=== PATIENT | female | born 1945 | race Caucasian/White ===

== ENCOUNTER → 2022-04-02 | Outpatient (CLI) | payer MEDICARE ==
[~2022-04-02] MED LIST: Aspirin EC81 MG PO; BUSP15 PO; CITA20 PO; DIAZ5 PO; LOSHYD PO
== END | disposition home or self-care (01) ==
LOC: LAB 12:00 → LAB SHORT 12:00
DX: J31.0 Chronic rhinitis (principal); J32.9 Chronic sinusitis, unspecified
CPT/HCPCS: 87070; 87077; 87147; 87186; 87205

== ENCOUNTER → 2023-10-20 | Outpatient (CLI) | payer MEDICARE ==
[2023-10-20 17:21] LABS: Source, Urine Clean Catch
[2023-10-20 18:20] LABS: Appearance, Urine Clear (Clear); Bilirubin, Urine Neg (Neg); Blood, Urine Neg (Neg); Color, Urine Yellow (P-Yellow); Glucose Qualitative, Urine Neg (Neg); Ketones, Urine Neg (Neg); Leukocyte Esterase, Urine Neg (Neg); Nitrite, Urine Neg (Neg); Protein, Urine 2+ (Neg); Specific Gravity, Urine 1.025 (1.003-1.022); Urobilinogen, Urine NORM (Normal)
[2023-10-20 18:29] LABS: Bacteria Few /hpf; Mucus Light (0-Heavy); Red Blood Cells, Urine 0-2 /hpf (0-2); Squamous Epithelial Cells Few /hpf (Few); Transitional Epithelial Cells Rare /hpf (0-Rare); White Blood Cells, Urine 0-2 /hpf (0-5)
== END | disposition home or self-care (01) ==
LOC: LAB SHORT 17:20 → LAB 17:20
PROVIDERS: Obstetrics & Gynecology
DX: R32 Unspecified urinary incontinence (principal)
CPT/HCPCS: 81001

== ENCOUNTER → 2024-04-14 | Outpatient (CLI) | payer MEDICARE | LOC: LAB 16:13 → LAB SHORT 16:13 | DX: L08.0 Pyoderma (principal) | CPT/HCPCS: 87070; 87205 ==

== ENCOUNTER 2024-11-14 01:15 | Day surgery (SDC) | payer MEDICARE ==
[2024-11-14] MEDS ORDERED: ROMOSOZUMAB-AQQG 210 MG/2.34 ML KIT SC SCH (06:00)
[2024-11-14 15:34] VITALS: BP 145/82
[2024-11-14] MEDS ORDERED: MELO7.5 PO (18:21)
[2024-11-14] MEDS ORDERED: AMLODIPINE BESYL5 MG PO (18:21)
[2024-11-14] MEDS ORDERED: DULOXETINE HCL60 M1 PO (18:22)
[2024-11-14] MEDS ORDERED: NEURONTIN300 MG PO (18:22)
[2024-11-14] MEDS ORDERED: OMEP20ER PO (18:23)
[2024-11-14] MEDS ORDERED: DONEPEZIL HCL10 M1 PO (18:24)
[2024-11-14] MEDS ORDERED: LOSA25 PO (18:26)
[2024-11-14] MEDS ORDERED: ACET500 PO (18:27)
[2024-11-14] MEDS ORDERED: C COMPLEX1000 M1 PO (18:27)
[2024-11-14] MEDS ORDERED: B-COMPLEX WITH1 EAC2 PO (18:28)
[2024-11-14] MEDS ORDERED: Buspirone HCl15 MG PO (18:28)
[2024-11-14] MEDS ORDERED: VITAMIN D5000 UNIT PO (18:29)
[2024-11-14] MEDS ORDERED: FLUT.05NI (18:29)
[2024-11-14] MEDS ORDERED: PROAIR RESPICL90 MCG INH (18:30)
== END 2024-11-14 15:25 | disposition home or self-care (01) ==
LOC: ATC 01:15
DX: M81.0 Age-related osteoporosis without current pathological fracture (principal); M19.042 Primary osteoarthritis, left hand; M19.041 Primary osteoarthritis, right hand; M47.817 Spondylosis without myelopathy or radiculopathy, lumbosacral region; L13.9 Bullous disorder, unspecified; Z79.899 Other long term (current) drug therapy
CPT/HCPCS: 96372; J3111

== ENCOUNTER 2024-12-15 02:56 | Day surgery (SDC) | payer MEDICARE ==
[~2024-12-15 02:56] MED LIST changes: +ACET500 PO; +AMLODIPINE BESYL5 MG PO; +B-COMPLEX WITH1 EAC2 PO; +Buspirone HCl15 MG PO; +C COMPLEX1000 M1 PO; +DONEPEZIL HCL10 M1 PO; +DULOXETINE HCL60 M1 PO; +FLUT.05NI; +LOSA25 PO; +MELO7.5 PO; +NEURONTIN300 MG PO; +OMEP20ER PO; +PROAIR RESPICL90 MCG INH; +VITAMIN D5000 UNIT PO
[2024-12-15] MEDS ORDERED: ROMOSOZUMAB-AQQG 210 MG/2.34 ML KIT SC SCH (13:30)
[2024-12-15 14:48] VITALS: BP 136/85
== END 2024-12-15 14:53 | disposition home or self-care (01) ==
LOC: ATC 02:56
DX: M81.0 Age-related osteoporosis without current pathological fracture (principal); M47.817 Spondylosis without myelopathy or radiculopathy, lumbosacral region; L13.9 Bullous disorder, unspecified; M19.041 Primary osteoarthritis, right hand; M19.042 Primary osteoarthritis, left hand; Z79.82 Long term (current) use of aspirin; Z79.899 Other long term (current) drug therapy
CPT/HCPCS: 96372; 99211; J3111

== ENCOUNTER 2025-01-17 08:48 | Day surgery (SDC) | payer MEDICARE ==
[2025-01-17] MEDS ORDERED: ROMOSOZUMAB-AQQG 210 MG/2.34 ML KIT SC SCH (10:20)
[2025-01-17 11:54] VITALS: BP 158/74
[2025-01-17] MEDS ORDERED: EVENITY SC (11:57)
== END 2025-01-17 11:50 | disposition home or self-care (01) ==
LOC: ATC 08:48
DX: M81.0 Age-related osteoporosis without current pathological fracture (principal)
CPT/HCPCS: 96372; J3111